=== PATIENT | male | born 1960 | race Caucasian/White ===

== ENCOUNTER 2018-11-11 17:14 | Emergency (ER) | payer OTHER ==
[2018-11-11] MEDS ORDERED: TETRACAINE HCL 0.5% OPH SOLN 4 ML OS ONE (17:33)
--- NOTE | 2018-11-11 17:39 | ER Document Report ---
ED Medical Screen (RME) - General Chief Complaint: Foreign Body in Eye Stated Complaint: METAL IN LEFT EYE Time Seen by Provider: 11/11/18 17:32 Primary Care Provider: USAMA MOCTEZUMA MD [Primary Care Provider] - Follow up as needed Mode of Arrival: Ambulatory Information source: Patient Notes: 57-year-old male presents to ED for complaint of metal in his left eye. 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 He states he had on protective glasses but he still got metal in his eye. You can see the metal to the lateral aspect about 3:00 of his left eye. Patient is alert oriented respirations regular and unlabored speaking in full sentences. He does have a history of asthma high blood pressure diabetes type 2. I have greeted and performed a rapid initial assessment of this patient. A comprehensive ED assessment and evaluation of the patient, analysis of test results and completion of medical decision making process will be conducted by an additional ED providers. TRAVEL OUTSIDE OF THE [place] IN LAST 30 DAYS: No - Related Data Allergies/Adverse Reactions: No Known Allergies Allergy (Unverified 01/08/15 07:19) Past Medical History - Past Medical History Cardiac Medical History: Reports: Hx Hypertension Denies: Hx Coronary Artery Disease, Hx Heart Attack Pulmonary Medical History: Reports: Hx Asthma Denies: Hx Bronchitis, Hx COPD, Hx Pneumonia Neurological Medical History: Denies: Hx Cerebrovascular Accident, Hx Seizures Endocrine Medical History: Reports: Hx Diabetes Mellitus Type 2 Renal/ Medical History: Denies: Hx Peritoneal Dialysis Musculoskeltal Medical History: Reports Hx Arthritis - back/lt shoulder Past Surgical History: Reports: Hx Orthopedic Surgery. Denies: Hx Pacemaker - Immunizations Hx Diphtheria, Pertussis, Tetanus Vaccination: Yes Physical Exam - Vital signs Vitals: Temp Pulse Resp BP Pulse Ox 97.9 F 118 H 18 106/69 95 11/11/18 17:20 11/11/18 17:20 11/11/18 17:20 11/11/18 17:20 11/11/18 17:20 Course - Vital Signs Vital signs: Temp Pulse Resp BP Pulse Ox 97.9 F 118 H 18 106/69 95 11/11/18 17:20 11/11/18 17:20 11/11/18 17:20 11/11/18 17:20 11/11/18 17:20 Doctor's Discharge - Discharge Referrals: USAMA MOCTEZUMA MD [Primary Care Provider] - Follow up as needed
[2018-11-11] MEDS ORDERED: POLYMYXIN B SULFATE/TMP OPH SOLN 10 ML OS ONE (18:38)
[2018-11-11] MEDS ORDERED: HYDROCODONE/ACETAMINOPHEN 5-325 MG (6 TAB/ER DISP) PO PRN (18:38)
--- NOTE | 2018-11-11 18:42 | ER Document Report ---
ED General - General Chief Complaint: Foreign Body in Eye Stated Complaint: METAL IN LEFT EYE Time Seen by Provider: 11/11/18 17:32 Primary Care Provider: AKIL LAMBERT MD [ACTIVE STAFF] - Follow up as needed Mode of Arrival: Ambulatory TRAVEL OUTSIDE OF THE [place] IN LAST 30 DAYS: No - HPI Patient complains to provider of: Metal in left eye Notes: Patient coming in for evaluation of metal in the left eye. 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 Patient states he was balancing the crankshaft. Patient states this is happened multiple times in the past. Patient states he did try to flush his eye out with no relief or no removal of foreign body. Patient denies any use of glasses or contacts. Patient states he was wearing appropriate protective shielding. Patient denies fever chills nausea vomiting diarrhea denies any trauma. - Related Data Allergies/Adverse Reactions: No Known Allergies Allergy (Unverified 01/08/15 07:19) Past Medical History - General Information source: Patient - Social History Smoking Status: Never Smoker Family History: Reviewed & Not Pertinent Patient has suicidal ideation: No Patient has homicidal ideation: No - Past Medical History Cardiac Medical History: Reports: Hx Hypertension Denies: Hx Coronary Artery Disease, Hx Heart Attack Pulmonary Medical History: Reports: Hx Asthma Denies: Hx Bronchitis, Hx COPD, Hx Pneumonia Neurological Medical History: Denies: Hx Cerebrovascular Accident, Hx Seizures Endocrine Medical History: Reports: Hx Diabetes Mellitus Type 2 Renal/ Medical History: Denies: Hx Peritoneal Dialysis Musculoskeletal Medical History: Reports Hx Arthritis - back/lt shoulder Past Surgical History: Reports: Hx Orthopedic Surgery. Denies: Hx Pacemaker - Immunizations Hx Diphtheria, Pertussis, Tetanus Vaccination: Yes Hx Pneumococcal Vaccination: 10/15/14 Review of Systems - Review of Systems Constitutional: No symptoms reported EENT: Eye pain Cardiovascular: No symptoms reported Respiratory: No symptoms reported Gastrointestinal: No symptoms reported Genitourinary: No symptoms reported Male Genitourinary: No symptoms reported Musculoskeletal: No symptoms reported Skin: No symptoms reported Hematologic/Lymphatic: No symptoms reported Neurological/Psychological: No symptoms reported -: Yes All other systems reviewed and negative Physical Exam - Vital signs Vitals: Temp Pulse Resp BP Pulse Ox 97.9 F 118 H 18 106/69 95 11/11/18 17:20 11/11/18 17:20 11/11/18 17:20 11/11/18 17:20 11/11/18 17:20 Interpretation: Normal - General General appearance: Appears well, Alert - HEENT Head: Normocephalic, Atraumatic Eyes: Normal Conjunctiva: Injected Cornea: Corneal abrasion, Flourescein stain uptake, Superficial foreign body Pupils: PERRL Visual acuity- Right eye: 20/25 Visual acuity- Left eye: 20/50 Visual acuity- Both eyes: 20/25 Corrective lenses worn: No - Respiratory Respiratory status: No respiratory distress Chest status: Nontender Breath sounds: Normal Chest palpation: Normal - Cardiovascular Rhythm: Regular Heart sounds: Normal auscultation Murmur: No - Abdominal Inspection: Normal Distension: No distension Bowel sounds: Normal Tenderness: Nontender Organomegaly: No organomegaly - Back Back: Normal, Nontender - Extremities General upper extremity: Normal inspection, Nontender, Normal color, Normal ROM, Normal temperature General lower extremity: Normal inspection, Nontender, Normal color, Normal ROM, Normal temperature, Normal weight bearing. No: Ryland's sign - Neurological Neuro grossly intact: Yes Cognition: Normal Orientation: AAOx4 [place] Coma Scale Eye Opening: Spontaneous [place] Coma Scale Verbal: Oriented [place] Coma Scale Motor: Obeys Commands [place] Coma Scale Total: 15 Speech: Normal Motor strength normal: LUE, RUE, LLE, RLE Sensory: Normal - Psychological Associated symptoms: Normal affect, Normal mood - Skin Skin Temperature: Warm Skin Moisture: Dry Skin Color: Normal Course - Re-evaluation Re-evalutation: 11/12/18 01:27 Using a 18-gauge needle I was able to remove the metal flake from the eye we will place the patient on Polytrim eyedrops for prophylaxis. Staining of the eye with floor seen afterwards showed no Ghada sign no signs of globe rupture patient will be discharged home - Vital Signs Vital signs: Temp Pulse Resp BP Pulse Ox 97.9 F 104 H 18 108/72 96 11/11/18 18:49 11/11/18 18:49 11/11/18 18:49 11/11/18 18:49 11/11/18 18:49 Procedures - Eye Procedure Left Foreign body removal: Left Fluorescein applied: Left Antibiotic Oinment/Drps Admin: Left eye Eyes picture: 1 - Area of the foreign body Discharge - Discharge Clinical Impression: Foreign body in eyeball Qualifiers: Encounter type: initial encounter Laterality: left Qualified Code(s): S05.52XA - Penetrating wound with foreign body of left eyeball, initial encounter Condition: Good Disposition: HOME, SELF-CARE Instructions: Corneal Abrasion ([facility]) Additional Instructions: We were able to remove the metal from your eye. I would recommend using the Polytrim drops and he gave you here in ER 2 drops in your left eye 3 times a day for the next 7 days. He may use Almond as needed for severe pain. I would recommend Tylenol Motrin for otherwise regular pain. Follow-up with your doctor or salt machine operator or salt machine operator listed if you have increased eye pain blurry vision increased redness of the eye. Referrals: AKIL LAMBERT MD [ACTIVE STAFF] - Follow up as needed
[2018-11-11 18:50] VITALS: BP 108/72
[2018-11-11] MEDS ORDERED: POLYMYXIN B SULFATE/TMP OPH SOLN 10 ML ONE (18:56)
== END 2018-11-11 19:02 | disposition home or self-care (01) ==
LOC: ER 17:14
PROC: 08C1XZZ Extirpation of Matter from Left Eye, External Approach (ICD-10-PCS; principal; 2018-11-11)
DX: S05.52XA Penetrating wound with foreign body of left eyeball, initial encounter (principal); W22.8XXA Striking against or struck by other objects, initial encounter; I10 Essential (primary) hypertension; E11.9 Type 2 diabetes mellitus without complications
CPT/HCPCS: 99283; 65205; J3490